=== PATIENT | male | born 2005 | race Caucasian/White ===

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

== ENCOUNTER 2023-06-09 10:08 | Emergency (ER) | payer OTHER ==
[~2023-06-09] VITALS: Ht 170.2 cm; Wt 68.9 kg
[2023-06-09 10:10] VITALS: BP 152/83; PULSE 118; RESP 17; TEMP 98; O2SAT 100
[2023-06-09] MEDS ORDERED: IBUP-2213 PO (10:34)
[2023-06-09 10:58] VITALS: BP 146/91; PULSE 108; RESP 20; TEMP 98; O2SAT 100
== END 2023-06-09 10:44 | disposition home or self-care (01) ==
LOC: MED 10:08
DX: R07.89 Other chest pain (principal); R51.9 Headache, unspecified; Z79.899 Other long term (current) drug therapy
CPT/HCPCS: 93005; 99283